=== PATIENT | female | born 1990 | race Caucasian/White ===

== ENCOUNTER → 2022-04-02 14:47 | Outpatient (CLI) | payer OTHER, SELFPAY ==
[2022-04-04 20:28] LABS: AFP, Serum 36.4 ng/mL (.); Calc Gestational Age Ultrasound (.); Estriol, Free 1.25 ng/mL (.); Inhibin A, Dimeric 107.01 pg/mL (.); Inhibin A, MoM 0.77 (.); Maternal Ethnicity Caucasian (.); Maternal Weight 185 lbs (.); Number of Fetuses No (.); OSBR Risk 1 IN 10000 (.); Results Report (.); Test Results *Screen Negative* (.); hCG, MoM 1.01 (.); hCG, Serum 24768 mIU/mL (.)
== END ==
PROVIDERS: Referring Provider Obstetrics & Gynecology; Visit Provider Obstetrics & Gynecology
DX: Z34.82 Encounter for supervision of other normal pregnancy, second trimester (principal)
CPT/HCPCS: 36415; 82105; 82677; 84702; 86336

== ENCOUNTER → 2022-04-09 10:45 | Outpatient (CLI) | payer OTHER, SELFPAY ==
--- NOTE | 2022-04-09 10:47 | DI.US.S_ITS ---
PROCEDURE: US OB >= 14 WEEKS FETUS INDICATIONS: ANATOMY SCAN OUTSIDE/PRIOR DATING DATA: Last menstrual period (LMP): Under. LMP-based estimated date of delivery (BRIAN): Not applicable. First dating scan (date and location): A 322. Working BRIAN: 08/29/2022 TECHNIQUE: Real-time scanning was performed of the fetus, with image documentation and biometric measurements. COMPARISON: None. FINDINGS: General: A single live intrauterine gestation is present. Presentation: Cephalic. Placenta: Placental position is posterior , without previa. Amniotic fluid index: 9.1 cm, normal range is 5-24 cm. Single deepest vertical pocket is 2.7 cm. heart rate: 147 beats per minute. Maternal cervical canal: 5.6 cm long. Normal lower limit is 2.5 cm. biometrics: Biparietal diameter: 4.5 cm equals 19 weeks 5 days Head circumference: 16.8 cm equals 19 weeks 3 days Abdominal circumference: 14.5 cm equals 19 weeks 5 days Femur length: 3.2 cm equals 18 weeks 6 days Clinically estimated gestational age: Unknown Composite gestational age from present scan: 19 weeks 5 days Estimated weight and percentile: 310 g, percentile rank not defined Anatomic survey: Neuro: Ventricles are non-dilated at less than 10 mm. Cisterna magna is normal at 3-11 mm. Cerebellum is normal in size and morphology. Face: The face is not ideally displayed, yet no abnormality can be seen. Spine: No evidence for spina bifida. Heart: No significant cardiac abnormality is seen, although the heart is not well seen. Diaphragm: Diaphragm is intact. Stomach: Left-sided stomach is present. Kidneys: No hydronephrosis. Normal is less than 5 mm in 2nd trimester, less than 7 mm in 3rd trimester. Cord: 3-vessel cord has orthotopic insertion. Bladder: Normal in size. Extremities: All 4 extremities identified. IMPRESSION: A single live intrauterine is seen. The L cement estimated gestational age is 19 weeks 5 days, corresponding to an BRIAN 08/29/2022. We strive to produce accurate, complete, and clear reports of imaging services. To assist us in improving patient care, this report was composed using standard report templates and voice recognition software. Therefore, it may contain abnormal punctuation, insertions and/or omissions. Occasional wrong-word or sound-alike substitutions may occur. Though we review the report and make efforts to correct it, we do recommend that the report be read carefully in proper context to recognize any text inaccuracies. Dictated by: Raghavendra Aguayo M.D. on 04/09/2022 at 12:30 Approved by: Raghavendra Aguayo M.D. on 04/09/2022 at 12:33
== END ==
PROVIDERS: PCP Student in an Organized Health Care Education/Training Program; Referring Provider Obstetrics & Gynecology; Visit Provider Obstetrics & Gynecology
DX: Z34.82 Encounter for supervision of other normal pregnancy, second trimester (principal); Z3A.19 19 weeks gestation of pregnancy
CPT/HCPCS: 76811

== ENCOUNTER → 2022-05-27 11:57 | Outpatient (CLI) | payer OTHER, SELFPAY ==
[2022-05-27 14:12] LABS: Hematocrit 28.8 % (36-46); Hemoglobin 9.6 g/dL (12.0-16.0)
[2022-05-27 14:27] LABS: GTT (PREG) 1 Hour PP 50gm Dose 137 mg/dL (76-139)
[2022-05-27 15:02] LABS: Ferritin 4 ng/mL (6-137)
[2022-05-27 15:16] LABS: Vitamin B12 259 pg/mL (239-931)
== END ==
PROVIDERS: Referring Provider Obstetrics & Gynecology; Visit Provider Obstetrics & Gynecology
DX: O99.019 Anemia complicating pregnancy, unspecified trimester; Z3A.26 26 weeks gestation of pregnancy; D50.9 Iron deficiency anemia, unspecified
CPT/HCPCS: 36415; 82607; 82728; 82950; 85014; 85018

== ENCOUNTER 2022-07-18 15:19 | Outpatient (CLI) | payer OTHER, SELFPAY | END 2022-07-18 16:00 | disposition home or self-care (01) | LOC: OB 07-28 07:52 | PROVIDERS: PCP Student in an Organized Health Care Education/Training Program; Referring Provider Obstetrics & Gynecology; Visit Provider Obstetrics & Gynecology | DX: O26.893 Other specified pregnancy related conditions, third trimester (principal); H53.8 Other visual disturbances; Z3A.33 33 weeks gestation of pregnancy | CPT/HCPCS: 59025; G0378; G0379 ==

== ENCOUNTER → 2022-08-07 11:23 | Outpatient (CLI) | payer OTHER, SELFPAY ==
[2022-08-08 11:49] LABS: Strep Grp B PCR POS for Grp B Strep
== END ==
PROVIDERS: PCP Student in an Organized Health Care Education/Training Program; Visit Provider Obstetrics & Gynecology
DX: Z34.83 Encounter for supervision of other normal pregnancy, third trimester (principal); Z3A.36 36 weeks gestation of pregnancy
CPT/HCPCS: 87653

== ENCOUNTER 2022-08-29 11:11 | Inpatient (IN) | payer OTHER, SELFPAY ==
--- NOTE | 2022-08-29 12:33 | PM.OBHP.1 ---
OB HPI Date/Time Date of admission: 08/29/22 Date Patient Seen: 08/29/22 Time Patient Seen: 12:33 History of Present Condition Chief complaint: IUP, 39+6 wks EGA, early labor : 3 Para: 2 Estimated Date of Delivery: 08/30/22 Estimated Gestational Age (weeks): 39+6 Narrative: Mariam Hudson is a 31 year old admitted with RUC and variable decelerations in early labor. course has been unremarkable, dating is firms, and milestones have been appropriate. Patient's initial platelet count was 119k and is 112k today on admission. The patient is GBS +. History of Present care: good care Dating criteria: LMP confirmed by 1st trimester US Ultrasounds: normal 1st trimester US and normal mid trimester US Obstetrical complications: none Medical complications: none Preadmission Labs Blood type: A (+) positive -: Antibody screen: negative, GBS status: positive, HBsAG: negative, HIV: negative and RPR/VDLR: negative -: Chlamydia screen: not detected and Gonorrhea screen: not detected -: Rubella: immune and Varicella: immune HCT: 28.8 HCAB: negative PAP: Normal Quad screen: Normal 1 hr GTT: 137 Prior (ies) History: x 2 Evaluation Evaluation Baseline heart rate: 150 Variability: Average (6-10) monitor accelerations: Present Monitor Decelerations: Recurrent and Variable Contraction Frequency (minutes): 4 Uterine Contraction Intensity: Moderate Status: Category ll Dilation (cm): 3 Effacement (%): 75 Dilation: 3-4 cm Effacement: 60-70% station: -1 Position of cervix: anterior Consistency: medium Krueger score: 9 Comments: No cord palpable in front of or adjacent to the vertex. [facility] Medical History (Updated 08/29/22 @ 18:35 by Grayson Pineda MD) Abnormal Pap smear of cervix (~2019) Anemia (~2013) Anxiety (~2006) Chronic back pain (~2006) Iron deficiency anemia Migraines (~2006) Severe major depression, single episode, without psychotic features (~2015) Surgical History (Updated 04/28/22 @ 20:19 by Susan Hodge) Anesthesia H/O ileostomy H/O resection of small bowel S/P bilateral breast reduction (~2020) [place] teeth extracted Family History (Updated 04/28/22 @ 20:22 by Susan Hodge) Father Crohn's disease Diabetes mellitus Kidney failure Congestive heart failure History of heart disease Hyperlipidemia Hypertension Mother Multiple sclerosis IBS (irritable bowel syndrome) Mental health problem Stroke Family/Other Breast cancer Grandmother Crohn's disease Grandfather History of heart disease Grandfather Diabetes mellitus History of heart disease Mental health problem Stroke Social History marital status: number of children: 2 household members: spouse and children lives independently: Yes housing: house pets and animals: Yes (1 cat (not currently in pt's home)) education level: college (some college) occupational status: unemployed current occupational exposures/hazards: No special shena needs: No travel history: over 6 months ago seatbelt use: always water heater temp set < 120 deg: Yes working smoke detector in home: Yes fire extinguisher in home: Yes carbon monox detector in home: Yes firearms in home: No do you feel safe at home: Yes Smoking Status: Never smoker second hand exposure: No alcohol intake: former substance use type: does not use during the past year weight has: remained stable well-balanced diet: daily or most days daily servings fruits/ve-4 caffeine: Yes (Aware of 200mg limit) Type(s) of exercise: bicycling (stationary bike) and yoga Meds Home Medications and Allergies Home Medications Medication Instructions Recorded Confirmed Type azathioprine 50 mg tablet (Imuran) 50 mg PO TID 03/26/22 08/29/22 History prenat.vits,sky,xvf-gvmn-xbdgp 1 tab PO DAILY 03/26/22 08/29/22 History citalopram 20 mg tablet (Celexa) 20 mg PO DAILY #30 tabs 05/27/22 08/29/22 Rx sumatriptan 20 mg/actuation nasal 20 mg intranasal Q2H PRN migraine 07/30/22 08/29/22 Rx spray headache #6 ea Allergies Allergy/AdvReac Type Severity Reaction Status Date / Time infliximab [From Remicade] Allergy Severe Anaphylaxis Verified 08/13/22 09:27 Sulfa (Sulfonamide Allergy Severe Anaphylaxis Verified 08/13/22 09:27 Antibiotics) zolpidem [From Ambien] Allergy Intermediate Hives Verified 08/13/22 09:27 OB Exam HENMT Head: normal to inspection, normocephalic and atraumatic Eyes General: appearance normal, both eyes and all related structures Resp Effort & Inspection: normal respiratory effort and able to speak in complete sentences Auscultation: clear to auscultation bilaterally Cardio Rate: regular rate Rhythm: regular rhythm Heart Sounds: S1 normal, S2 normal and no murmurs Extremities Lower extremity: Yes normal to inspection GI Inspection: normal to inspection Palpation: Yes soft and Yes no hepatosplenomegaly Uterus Location (Fundal Height): 38 Estimated Weight (lbs): 8 Objective Labs Result Diagrams: 08/29/22 12:30 Assessment and Plan Assessment and Plan Assessment and Plan narrative: ASSESSMENT 1. Intrauterine , 39+6 wks EGA, early labor 2. GBS positive status 3. Thrombocytopenia, mild, stable PLAN 1. Admit 2. See admission orders Time Spent with Patient Total time spent with greater than 50% in coordination of care (as documented) at patient's floor/unit and/or counseling patient:: 15-24 minutes
[2022-08-29] MEDS: LACTATED RINGERS 1,000 ML 100 ML IV ×3 (12:45→15:17)
[2022-08-29] MEDS: PENICILLIN G POTASSIUM 5,000,000 UNIT in DEXTROSE 5% IN WATER 250 ML 250 UNIT IV (12:45)
[2022-08-29 13:19] LABS: Add Manual Diff / Slide Review NO; Basophils Absolute Auto 0 /uL (0-100); Basophils Percent Auto 0.2 % (0-2); Eosinophils Absolute Auto 0 /uL (0-450); Eosinophils Percent Auto 0.2 % (2-4); Hematocrit 39.2 % (36-46); Hemoglobin 12.6 g/dL (12.0-16.0); Lymphocytes Absolute Auto 900 /uL (1100-4500); Lymphocytes Percent Auto 10.3 % (25-40); Mean Corpuscular Hemoglobin 26.5 PG (26-34); Mean Corpuscular Volume 82.6 fL (80-100); Monocytes Absolute Auto 400 /uL (0-900); Monocytes Percent Auto 4.6 % (3-14); Neutrophils Absolute Auto 7200 /uL (1500-7000); Neutrophils Percent Auto 84.7 % (50-75); Platelet Count 119 X10^3/uL (150-400); Red Blood Cell Count 4.75 X10^6/uL (4.0-5.2); White Blood Cell Count 8.5 X10^3/uL (4.5-11.0)
[2022-08-29 13:40] LABS: COVID19 -Nasal RAPID Negative (Negative)
[2022-08-29] MEDS: PENICILLIN G POTASSIUM 3,000,000 UNIT/50 ML FROZ.PIGGY 100 UNIT IV ×2 (16:43→20:48)
[2022-08-29 18:03] VITALS: BP 120/88
--- NOTE | 2022-08-29 18:39 | PM.OBPNLAB ---
Date/Time Date Patient Seen: 08/29/22 Time Patient Seen: 18:19 Pain Control Pain control: tolerating well and epidural Pelvic Exam Dilation (cm): 4 Effacement (%): 90 station: -1 Amniotic membrane status: Ruptured Comments: AROM, light meconium staining Contractions Contractions on admission: none Monitor mode: None Contraction pattern: Regular Contraction phase: Resting Contraction intensity: Moderate Status status: Category ll Heart Rate Baseline: 145 Monitor Accelerations: Present Monitor Decelerations: Absent Monitor Variability: Moderate Comments: Brief deceleration following AROM with patient on her left side, resolved spontaneously w/ repositioning to left side Assessment and Plan Assessment: active labor Plan: continuous present management Comments: SAUMYA in place, anticipate
[2022-08-29] MEDS: FENT 2MCG/ML BUPIV 0.125% EPI 200 MCG/100 ML PLAST..BAG 8 MCG EPIDURAL (22:10)
[2022-08-29] MEDS: OXYTOCIN PREMIX 30 UNIT/500 ML PLAST..BAG 999 UNIT IV (23:05)
[2022-08-29] MEDS: LIDOCAINE 1% 20 ML (23:20)
--- NOTE | 2022-08-29 23:34 | PM.OBPRVD ---
Labor & Delivery Delivery date: 08/29/22 Intrapartal Events: Deceleration (Recurrent variables) Cervical ripening method: none Induction method: none Delivery augmentation: rupture of membranes Delivery monitor: external FHT and external uterine Route of delivery: Episiotomy description: None L&D Laceration Description: Perineal - 2nd Degree and Vaginal - 1st Degree (Left) Delivery repair: chromic Estimated blood loss (mL): 300 Anesthesia Type: Epidural and Local Complications: None Narrative: Following a brief 2nd stage, the patient delivered successfully via spontaneous vaginal a viable male infant over an intact perineum.? No shoulder dystocia was encountered but there was a nuchal cord x 3.? Skin to skin contact was initiated immediately and delayed cord clamping performed.? When the umbilical cord was doubly clamped and cut, umbilical cord blood samples and an 8 in segment of umbilical cord banking per patient request.? Additional cord blood was obtained for routine studies.? The placenta delivered spontaneously with gentle cord traction and suprapubic countertraction.? The placenta was seen to be intact with a small succenturiate lobe which was also intact.? IV Pitocin was administered and uterine bleeding declined nicely.? Inspection of the perineum, introitus, and vaginal davis showed a first degree left sided vaginal laceration and midline second-degree perineal laceration exteeding upthe right lateral vaginal wall which were repaired under epidural with local anesthesia adjunct using 2 strands of 2-0 chromic catgut suture in the usual manner.? At the completion of the delivery process both mother and baby were doing well. Baby 1: Infant gender: Male Presentation: vertex Position: Left Occiput Anterior Placenta delivery description: Spontaneous and Expressed Cord Vessel Description: Nuchal Cord (x 3; pathologically long cord) score (1 min): 8 score (5 min): 9 weight: 8 lb 2.267 oz Plan for aftercare: Routine care
[2022-08-30] MEDS: ACETAMINOPHEN 325 MG TABLET 650 MG PO ×4 (04:12→21:37)
[2022-08-30] MEDS: IBUPROFEN 600 MG TABLET PO ×4 (04:12→21:37)
[2022-08-30] MEDS: DERMOPLAST SPRAY 20% 60 ML 1 SPRAY TOP (04:13)
[2022-08-30 07:49] LABS: Add Manual Diff / Slide Review NO; Basophils Absolute Auto 0 /uL (0-100); Basophils Percent Auto 0.3 % (0-2); Eosinophils Absolute Auto 0 /uL (0-450); Eosinophils Percent Auto 0.4 % (2-4); Hematocrit 35.1 % (36-46); Hemoglobin 11.4 g/dL (12.0-16.0); Lymphocytes Absolute Auto 800 /uL (1100-4500); Lymphocytes Percent Auto 9.4 % (25-40); Mean Corpuscular HGB Conc 32.5 % (30-36); Mean Corpuscular Hemoglobin 26.7 PG (26-34); Mean Corpuscular Volume 82.2 fL (80-100); Monocytes Absolute Auto 500 /uL (0-900); Monocytes Percent Auto 5.5 % (3-14); Neutrophils Absolute Auto 6900 /uL (1500-7000); Neutrophils Percent Auto 84.4 % (50-75); Platelet Count 116 X10^3/uL (150-400); Red Blood Cell Count 4.27 X10^6/uL (4.0-5.2); Red Cell Distribution Width 19.4 % (11.6-14.8); White Blood Cell Count 8.2 X10^3/uL (4.5-11.0)
[2022-08-30] MEDS: DOCUSATE 100 MG CAPSULE PO ×2 (09:53→21:37)
[2022-08-30] MEDS: azaTHIOprine 50 MG TABLET PO ×3 (11:09→21:40)
[2022-08-30] MEDS: CITALOPRAM 10 MG TABLET 20 MG PO (11:10)
[2022-08-30] MEDS: OXYCODONE IR 5 MG TABLET PO ×3 (11:10→18:59)
--- NOTE | 2022-08-30 19:09 | P.PNOB_ITS ---
Subjective - OB Subjective Patient comments: no complaints [place] baby status: doing well feeding status: exclusively breast feeding Date Patient Seen: 08/30/22 Time Patient Seen: 15:00 Interval history: Doing well, no issues. Exam Const General: cooperative and comfortable Nutritional Appearance: average body habitus Orientation: alert and oriented x3 HENMT Head: normal to inspection, atraumatic and abrasion Ears: hearing grossly normal bilaterally Face and sinus: face symmetric Eyes General: appearance normal, both eyes and all related structures Conjunctivae: conjunctivae normal Sclera: sclerae normal EOM: EOM intact bilaterally Neck Neck: normal visual inspection Resp Effort & Inspection: normal respiratory effort and able to speak in complete sentences GI Inspection: normal to inspection Palpation: soft and no hepatosplenomegaly External Female Exam: other (No significant bleeding noted) Extrem General: no calf tenderness Psych Appearance: grossly normal Mental Status: mental status grossly normal Speech and Movement: speech and movement normal Mood: congruent mood Affect: normal affect Attitude: cooperative Thought Process: normal Thought Content: normal Judgment: judgment good Objective Labs Result Diagrams: 08/30/22 07:10 Labs: Laboratory Results - last 24 hr 08/30/22 07:10 WBC 8.2 RBC 4.27 Hgb 11.4 L Hct 35.1 L MCV 82.2 MCH 26.7 MCHC 32.5 RDW 19.4 H Plt Count 116 L Neut % (Auto) 84.4 H Lymph % (Auto) 9.4 L [place] % (Auto) 5.5 Eos % (Auto) 0.4 L Baso % (Auto) 0.3 Neut # (Auto) 6900 Lymph # (Auto) 800 L [place] # (Auto) 500 Eos # (Auto) 0 Baso # (Auto) 0 Assessment & Plan Plan day: 1 plan OB: routine care Comments: Anticipate discharge in the AM but infant not yet cleared for discharge Time Spent With Patient Time: Total time spent is greater than 50% in coordination of care (as documented) at patient's floor/unit and/or counseling patient: Time with patient: 15-24 minutes
[2022-08-31] MEDS: ACETAMINOPHEN 325 MG TABLET 650 MG PO (07:52)
[2022-08-31] MEDS: DOCUSATE 100 MG CAPSULE PO (07:53)
[2022-08-31] MEDS: CITALOPRAM 10 MG TABLET 20 MG PO (07:53)
[2022-08-31] MEDS: IBUPROFEN 600 MG TABLET PO (07:53)
[2022-08-31] MEDS: azaTHIOprine 50 MG TABLET PO (07:54)
--- NOTE | 2022-08-31 09:13 | PM.OBDS.1 ---
Discharge Providers Provider Date of admission: 08/29/22 11:11 Discharge Date: 08/31/22 Primary care physician: Jamilah Calderon MD Consults: 08/29/22 12:31 Consult to Anesthesiology Urgent Comment: Consulting Provider: Grayson Pineda Reason for consultation: SAUMYA placement in labor Has provider been notified: No 08/30/22 23:31 Consult to Global Sales Manager Routine Comment: Discharge provider: Grayson Pineda MD Summary Hospital Course Date Patient Seen: 08/31/22 Time Patient Seen: 09:14 Diagnoses: Intrauterine gestation, 39+ 6 weeks gestational age, delivered via vaginal Hospital Course: Mariam presented in early active labor on 08/29/2022 and late that evening delivered spontaneously a viable male with Apgars of 8 and 9 and a weight 8 lb 2.26 oz.. Obstetrical lacerations were sustained and repaired. Following delivery both mother and baby have done extremely well with mother experiencing prompt return of bowel and bladder function, she is remained afebrile and normotensive, she is ambulating independently, tolerating a regular diet, and her pain is well controlled with oral pain medications. She will be discharged at this time to home after counseling regarding precautionary symptoms, limitations of activity, medications, and plans for follow-up which will be in 6 weeks. Medications at discharge will include continuation of all pre-admission medications, and ibuprofen 600 mg q.6 hours as needed. pain. Peripartum Data Laceration Description: Perineal - 2nd Degree and Vaginal - 1st Degree Episiotomy description: None complications: none [place] 1: Gender: Male Status at Discharge Cognitive/behavioral status at discharge: oriented Functional status at discharge: independent ambulation Overall status at discharge: patient is progressing back to baseline Time Spent with Patient Time attestation: Total time spent providing and/or coordinating discharge services: Time spent: Less than 30 minutes Objective Labs Result Diagrams: 08/30/22 07:10 Exam Const General: cooperative and comfortable Nutritional Appearance: average body habitus Orientation: alert and oriented x3 HENMT Head: normal to inspection, atraumatic and abrasion Ears: hearing grossly normal bilaterally Face and sinus: face symmetric Eyes General: appearance normal, both eyes and all related structures Conjunctivae: conjunctivae normal Sclera: sclerae normal EOM: EOM intact bilaterally Neck Neck: normal visual inspection Resp Effort & Inspection: normal respiratory effort and able to speak in complete sentences GI Inspection: normal to inspection Palpation: soft and no hepatosplenomegaly External Female Exam: other (No significant bleeding noted) Extrem General: no calf tenderness Psych Appearance: grossly normal Mental Status: mental status grossly normal Speech and Movement: speech and movement normal Mood: congruent mood Affect: normal affect Attitude: cooperative Thought Process: normal Thought Content: normal Judgment: judgment good Discharge Plan Discharge Plan Patient Disposition: Home Provider Discharge Comment: Please review the written instructions you received when you were discharged from the hospital. Your follow-up appointment will need to be scheduled for 6 weeks following her delivery and I look forward to seeing you then. If in the meanwhile however you have any issues, concerns, or problems, please contact me either through the office phone at [phone], or via the patient portal. Discharge orders & Medications Prescriptions: New ibuprofen 600 mg Tablet 600 mg PO Q6HR PRN (Reason: Pain, Mild (1-3)) Qty: 60 2RF Continued prenat.vits,sky,eqz-lqed-hmixm Tablet 1 tab PO DAILY azathioprine [Imuran] 50 mg tablet 50 mg PO TID citalopram [Celexa] 20 mg tablet 20 mg PO DAILY Qty: 30 12RF sumatriptan 20 mg/actuation spray,non-aerosol 20 mg intranasal Q2H PRN (Reason: migraine headache) Qty: 6 3RF Rx Instructions: administer into one nostril as a single dose; if 2nd dose needed,administer into other nostril after at least 2 hrs, NTE 2 doses (40 mg) per episode Follow up/Referrals: Grayson Pineda MD [Physician] - (please call [phone] on 09/01/22 to schedule your 6 week appt.) Discharge Health Status Multidrug resistant organism: No MDRO Diet/Activity/Treatments Diet: Diet as Tolerated Activity: As tolerated Other treatments: Nemp-aaf-rqqwskr Tylenol may be used for additional pain relief. Vkfw-cpj-wknyjjt stool softeners and/or MiraLax may be used for constipation. Skin/Wound/Dressing Care Report to your healthcare provider any signs of infection, such as:: chills, fever, increased pain, unusual drainage and unusual redness Dressing: N/A Visit Report/Discharge Packet Instructions: DI for Labor and Delivery, Vaginal , DI for Depression Stand Alone Forms: Discharge: Care Discharge Data Primary Care Provider: Jamilah Calderon
== END 2022-08-31 10:40 | disposition home or self-care (01) | DRG 806 ==
PROVIDERS: Admitting Provider Obstetrics & Gynecology; PCP Student in an Organized Health Care Education/Training Program; Referring Provider Obstetrics & Gynecology; Visit Provider Obstetrics & Gynecology
DX: O76 Abnormality in fetal heart rate and rhythm complicating labor and delivery (principal); O99.12 Other diseases of the blood and blood-forming organs and certain disorders involving the immune mechanism complicating childbirth; Z37.0 Single live birth; D69.6 Thrombocytopenia, unspecified; Z3A.39 39 weeks gestation of pregnancy; O99.824 Streptococcus B carrier state complicating childbirth; O70.1 Second degree perineal laceration during delivery; Z20.822 Contact with and (suspected) exposure to COVID-19
CPT/HCPCS: 36415; 59025; 59050; 59410; 85025; 86850; 86900; 86901; 87635; C9803; G0379; J2540; J2590; J7500

== ENCOUNTER 2023-12-09 09:26 | Day surgery (SDC) | payer OTHER, SELFPAY ==
--- NOTE | 2023-12-09 | PATH_ITS ---
[facility] Accession Number: [id number] No. of containers..02 Tissue . 01 Material submitted: . PART A: colon - TRANSVERSE PART B: colon - LEFT COLON . 01 Diagnosis: A-B. TRANSVERSE, LEFT COLON, BIOPSIES: Colonic mucosa with no diagnostic abnormality. Negative for active, chronic, and microscopic colitis. Negative for dysplasia and malignancy. . MRV 12/14/2023 1221 Local . 01 Electronically signed: . Yamileth Solorio MD, Pathologist NPI- [id number] . 01 Gross description: . Part A: TRANSVERSE: Received in formalin are multiple fragment(s) of leblanc, soft tissue measuring 0.1 x 0.1 x 0.1 cm to 0.4 x 0.2 x 0.2 cm submitted entirely in 1 cassette(s) Part B: LEFT COLON: Received in formalin are multiple fragment(s) of leblanc, soft tissue measuring 0.1 x 0.1 x 0.1 cm to 0.2 x 0.2 x 0.2 cm submitted entirely in 1 cassette(s) /BRIGITTE 12/10/2023 1845 Local . 01 Pathologist provided ICD-10: K50.90 . 01 CPT . 042900, [id number] Specimen Comment: A courtesy copy of this report has been sent to [phone] Performed at: [facility] [address] [place] [address], [place], [place] [id number] MD Vipul Monzon MD Phone: [phone]
--- NOTE | 2023-12-09 10:15 | P.HP_ITS ---
History of Present Illness History of Present Illness Date Patient Seen: 12/09/23 Chief complaint: Colonoscopy Narrative: History of Crohn's disease diagnosed at age 14 almost 20 years ago. Status post small bowel resection ostomy and reanastomosis. Last colonoscopy 6 years ago. Need for follow-up colonoscopy. Currently off all medications for Crohn's disease [facility] Medical History (Updated 08/29/22 @ 18:35 by Grayson Pineda MD) Migraines (~2006) Chronic back pain (~2006) Anemia (~2013) Abnormal Pap smear of cervix (~2019) Severe major depression, single episode, without psychotic features (~2015) Iron deficiency anemia Anxiety (~2006) Surgical History (Updated 04/28/22 @ 20:19 by Susan Hodge) Anesthesia S/P bilateral breast reduction (~2020) H/O resection of small bowel H/O ileostomy [place] teeth extracted Family History (Updated 04/28/22 @ 20:22 by Susan Hodge) Father Crohn's disease Diabetes mellitus Kidney failure Congestive heart failure History of heart disease Hyperlipidemia Hypertension Mother Multiple sclerosis IBS (irritable bowel syndrome) Mental health problem Stroke Family/Other Breast cancer Grandmother Crohn's disease Grandfather History of heart disease Grandfather Diabetes mellitus History of heart disease Mental health problem Stroke Social History marital status: number of children: 2 household members: spouse and children lives independently: Yes housing: house pets and animals: Yes (1 cat (not currently in pt's home)) education level: college (some college) occupational status: unemployed current occupational exposures/hazards: No special shena needs: No travel history: over 6 months ago seatbelt use: always water heater temp set < 120 deg: Yes working smoke detector in home: Yes fire extinguisher in home: Yes carbon monox detector in home: Yes firearms in home: No do you feel safe at home: Yes Smoking Status: Never smoker second hand exposure: No alcohol intake: former substance use type: does not use during the past year weight has: remained stable well-balanced diet: daily or most days daily servings fruits/ve-4 caffeine: Yes (Aware of 200mg limit) Type(s) of exercise: bicycling (stationary bike) and yoga Meds Home Medications and Allergies Home Medications Medication Instructions Recorded Confirmed Type prenat.vits,sky,nzt-xnfo-tgciz 1 tab PO DAILY 03/26/22 08/29/22 History citalopram 20 mg tablet (Celexa) 20 mg PO DAILY #30 tabs 05/27/22 08/29/22 Rx sumatriptan 20 mg/actuation nasal 20 mg intranasal Q2H PRN migraine 07/30/22 08/29/22 Rx spray headache #6 ea ibuprofen 600 mg tablet 600 mg PO Q6HR PRN Pain, Mild 08/31/22 Rx (1-3) #60 tabs Allergies Allergy/AdvReac Type Severity Reaction Status Date / Time infliximab [From Remicade] Allergy Severe Anaphylaxis Verified 12/09/23 10:15 Sulfa (Sulfonamide Allergy Severe Anaphylaxis Verified 12/09/23 10:15 Antibiotics) zolpidem [From Ambien] Allergy Intermediate Hives Verified 12/09/23 10:15 Exam Narrative Exam Narrative: Oropharynx free of lesions Chest clear to auscultation percussion Cardiac exam reveals no S3 or murmur Assessment & Plan Assessment & Plan narrative: History of ileocolonic Crohn's disease need for follow-up colonoscopy. Risks, benefits, alternatives have been explained.
[2023-12-09 10:16] VITALS: BP 117/87; PULSE 108; RESP 16; TEMP 36.2; O2SAT 98
--- NOTE | 2023-12-09 10:17 | P.OP.COLON_ITS ---
Operative Date/Time/Diagnoses Date of procedure: 12/09/23 Pre-op diagnosis: See indication and findings Procedure & Clinicians Study performed: Colonoscopy Indications: History of Crohn's disease Surgeon: Smooth Almodovar Procedure Notes Procedure in detail: After informed consent was obtained the patient was placed in left lateral decubitus position. The video colonoscope was introduced the rectum it is and slowly advanced to the anastomosis and a few cm beyond. On slow withdrawal mucosa was carefully examined. The scope was removed. The patient tolerated procedure well. Blood loss none Complications none Sedation mac Findings 1. Anastomosis at 70-80 cm. The anastomosis was wide open but had cir cumferential superficial active Crohn's disease. 2. 5 cm upstream of the anastomosis was a stenosis too small to admit the adult colonoscope though I would surmise that a video upper scope could have made it through. This also seemed involved with circumferential active Crohn's disease. Both sites were very superficial. 3. Remainder of the colon was normal other than the rectosigmoid which had very few scattered aphthous ulcerations. Biopsies were taken in the transverse colon and left colon to every 10 cm. She should have follow-up colonoscopy in 2-3 years. Will be in touch regarding biopsies.
[2023-12-09] MEDS: LACTATED RINGERS 1,000 ML 42 ML IV (10:23)
[2023-12-09 11:19] VITALS: BP 120/76; PULSE 92; RESP 12; TEMP 36.2; O2SAT 95
[2023-12-09 11:23] VITALS: BP 118/77; PULSE 86; RESP 12; O2SAT 100
[2023-12-09 11:28] VITALS: BP 123/72; PULSE 92; RESP 13; O2SAT 100
[2023-12-09 11:30] VITALS: BP 120/85; PULSE 89; RESP 12; TEMP 37.1; O2SAT 100
== END 2023-12-09 11:49 | disposition home or self-care (01) ==
PROVIDERS: PCP Student in an Organized Health Care Education/Training Program; Referring Provider Internal Medicine Gastroenterology; Visit Provider Internal Medicine Gastroenterology
PROC: 0DJD8ZZ Inspection of Lower Intestinal Tract, Via Natural or Artificial Opening Endoscopic (ICD-10-PCS; CPT 45378; principal; 2023-12-09 10:30)
DX: Z87.19 Personal history of other diseases of the digestive system (principal)
CPT/HCPCS: 45380; J2704